=== PATIENT | female | born 1935 | race Caucasian/White ===

== ENCOUNTER 2017-01-20 14:32 | Emergency (ER) | payer OTHER ==
[~2017-01-20] VITALS: Ht 162.6 cm; Wt 49.9 kg
--- NOTE | 2017-01-20 15:27 | RADIOLOGY REPORT ---
EXAMINATION: XR TIBIA AND FIBULA, RIGHT CLINICAL INFORMATION: Right leg swelling COMPARISON: None TECHNIQUE: AP and lateral views of the right tibia and fibula were obtained. FINDINGS: The bones and joints are normal. There is soft tissue swelling involving the mid medial right calf. IMPRESSION: Normal right tibia and fibula. Soft tissue swelling.
--- NOTE | 2017-01-20 16:24 | ED UPPER/LOWER EXTREMITY COMPL ---
History of Present Illness General Chief Complaint: Lower Extremity Injury Stated Complaint: PT SOMETHING ON THERT ANKLE Source: patient, family Exam Limitations: no limitations Vital Signs & Intake/Output Vital Signs & Intake/Output Vital Signs Date Time Temp Pulse Resp B/P B/P Pulse O2 O2 Flow FiO2 Mean Ox Delivery Rate 01/20 1736 98.3 78 20 140/70 100 Room Air ED Intake and Output 01/21 0000 01/20 1200 Intake Total Output Total Balance Patient 110 lb Weight Allergies Coded Allergies: No Known Allergies (01/20/17) Reconcile Medications Alendronate Sodium 70 MG TABLET 1 TAB PO QMON OSTEOPOROSIS (Reported) in the morning, at least 30 minutes before the first food, beverage, or medication of the day Calcium Carbonate/Vitamin D3 (Calcium 500 + D Tablet) (Unknown Strength) TABLET (Unknown Dose) PO DAILY SUPPLEMENT (Reported) Cephalexin (Keflex) 500 MG CAPSULE 1 CAP PO TID INFECTION Ibuprofen 400 MG TABLET 1 TAB PO TID PRN PAIN Multivitamin (Multi-Day Vitamins) 1 EACH TABLET 1 TAB PO DAILY SUPPLEMENT ( Reported) [place]-3 Fatty Acids/Fish Oil (Fish Oil 1,200 MG Softgel) (Unknown Strength) CAPSULE (Unknown Dose) PO DAILY SUPPLEMENT (Reported) Triage Note: 81 YEAR OLD FEMALE STATES THAT SHE WAS REACHING FOR SOMETHING WHEN A MANTLE FELL DOWN ON HER R SANCHES AREA, PT NOTED WITH DEEP SKIN TEAR TO R SANCHES, AND SOME SWELLING, STATES THAT SHE IS PAIN FREE EXCEPT WHEN SHE WALKS Triage Nurses Notes Reviewed? yes Onset: Abrupt Duration: hour(s): (FEW) Timing: single episode today Severity: moderate Pain/Injury Location: Right: Leg. No Modifying Factors: none Associated Symptoms: BLEEDING, SKIN AVULSION HPI: This is an 81-year-old female who presents here with chief complaint of laceration to the right leg after the wood mantle fell on it. She states that she fell back and landed on her bottom. Did not hit her head or pass out. Tetanus is not up-to-date. Some active bleeding at home minimal at this time. Past History Travel History Traveled to [place] past 21 day No Medical History Any Pertinent Medical History? see below for history Neurological: NONE EENT: NONE Cardiovascular: NONE Respiratory: NONE Gastrointestinal: NONE Hepatic: NONE Renal: NONE Musculoskeletal: NONE Psychiatric: NONE Endocrine: NONE Blood Disorders: NONE Cancer(s): NONE DRESS DRAPER/Reproductive: NONE Tetanus Status: not up to date Surgical History Surgical History: non-contributory Psychosocial History What is your primary language Bulgarian Tobacco Use: Never used ETOH Use: denies use Illicit Drug Use: denies illicit drug use Family History Hx Contributory? No Review of Systems Review of Systems Constitutional: Denies: chills, fever. EENTM: Reports: no symptoms. Respiratory: Denies: cough, sputum production. Cardiovascular: Denies: chest pain, palpitations. Gastrointestinal/Abdominal: Denies: abdominal pain. Genitourinary: Reports: no symptoms. Musculoskeletal: Reports: see HPI (LEG PAIN). Skin: Reports: no symptoms. Neurological/Psychological: Reports: no symptoms. Hematologic/Endocrine: Reports: bruising, bleeding. Immunological: Denies: splenectomy. All Other Systems: Reviewed and Negative Physical Exam Physical Exam General Appearance: well developed/nourished, alert, awake, mild distress Head: atraumatic Eyes: Bilateral: PERRL, EOMI. Ears, Nose, Throat: normal pharynx, normal ENT inspection, hearing grossly normal Neck: normal inspection, supple Cardiovascular/Respiratory: regular rate/rhythm Peripheral Pulses: 2+ radial (R), 2+ radial (L), 2+ dorsalis pedis (R), 2+ dorsalis pedis (L) Gastrointestinal: SOFT NONTENDER Back: normal inspection Leg Left: normal range of motion, normal inspection Leg Right: SKIN ABRASION, SKIN AVULSION Hip Left: normal range of motion, normal inspection Hip Right: normal range of motion, normal inspection Knee Left: normal range of motion, normal inspection Knee Right: normal range of motion, normal inspection Foot Left: normal inspection, normal range of motion Foot Right: normal inspection, normal range of motion Neurologic/Tendon: normal sensation, normal motor functions, normal tendon functions Skin: intact, normal color, warm/dry Lymphatic: no anterior cervical morgan Diagram Legs Front/Back 1) SKIN ABRASION 2) 10 CM/10CM V SHAPED SKIN AVULSION Progress Differential Diagnosis: SKIN AVULSION, SKIN TEAR, FRACTURE, CONTUSION Plan of Care: Current Medications Sig/Nick Start time Last Medication Dose Stop Time Status Admin Lidocaine/Epinephrine 10 ML ONCE ONE 01/20 1645 AC 01/20 01/20 1646 1636 Tetanus/Diphtheria 0.5 ML ONCE ONE 01/20 1645 01/20 Toxoids Adsorbed 01/20 1646 1635 (Decavac) XRAY NEGATIVE FOR FRATURE. PATIENT WITH LARGE SKIN AVULSION THAT NEEDS REPAIR. Large flap laceration to the distal leg. Patient anesthetized and irrigated extensively by nurse. See laceration procedure below. (MIESHA MATTSON,MISSY) Diagnostic Imaging: Viewed by Me: Radiology Read. Discussed w/RAD: Radiology Read. Radiology Impression: PATIENT: WILFRED REDMAN PRESENT AGE: 81 PATIENT ACCOUNT NO: [id number] : 35 LOCATION: [facility] ORDERING PHYSICIAN: NORA SAGE DO SERVICE DATE: 01/20/17 EXAM TYPE: RAD - [id number], RIGHT EXAMINATION: XR TIBIA AND FIBULA, RIGHT CLINICAL INFORMATION: Right leg swelling COMPARISON: None TECHNIQUE: AP and lateral views of the right tibia and fibula were obtained. FINDINGS: The bones and joints are normal. There is soft tissue swelling involving the mid medial right calf. IMPRESSION: Normal right tibia and fibula. Soft tissue swelling. DICTATED BY: SUKHJINDER PIMENTEL MD DATE/TIME DICTATED:01/20/171521 SLAB INSTALLER: REBEKAH DATE/TIME TRANSCRIBED:01/20/171521 CONFIDENTIAL, DO NOT COPY WITHOUT APPROPRIATE AUTHORIZATION. <Electronically signed in Other Vendor System> SIGNED BY: SUKHJINDER PIMENTEL MD 01/20/171526 Departure Departure Time of Disposition: 1747 Disposition: HOME OR SELF CARE Condition: Stable Clinical Impression Primary Impression: Skin avulsion Secondary Impressions: Skin tear Referrals: GEORGE RENTERIA MD (PCP/Family) Additional Instructions: RETURN IN 2 DAYS FOR WOUND RECHECK FOLLOW UP WITH THE WOUND CARE CLINIC ([phone]) TAKE KEFLEX DIRECTED AND TYLENOL NEEDED FOR PAIN Departure Forms: Customer Survey General Discharge Information Prescriptions: Current Visit Scripts Cephalexin (Keflex) 1 CAP PO TID #30 CAP Ibuprofen 1 TAB PO TID PRN PAIN #20 TAB Procedures Laceration/Wound Repair Laceration/Wound Repair: Wound Location: RIGHT LEG Wound's Depth, Shape: into muscle Wound Length (cm): 20 Wound Explored: clean, no foreign body removed, irrigated extensively Irrigated w/ Saline (ccs): 100 Betadine Prep? Yes Anesthesia: lidocaine w/ epi Volume Anesthetic (ccs): 5 Suture Size/Type: 6:0 Number of Sutures: 16 Progress: patient tolerated procedure well
[2017-01-20] MEDS ORDERED: MULTI-DAY VITA1 EACH PO (16:49)
[2017-01-20] MEDS ORDERED: FISH OIL 1,2001 EAC4 PO (16:49)
[2017-01-20] MEDS ORDERED: ALENDRONATE SOD70 M2 PO (16:49)
[2017-01-20] MEDS ORDERED: CALCIUM 500 +1 EAC5 PO (16:50)
[2017-01-20] MEDS ORDERED: IBUPROFEN400 M1 PO (17:25)
[2017-01-20] MEDS ORDERED: KEFLEX500 M1 PO (17:25)
[2017-01-20 17:36] VITALS: BP 140/70
== END 2017-01-20 17:49 ==
LOC: ERH 14:32
DX: S81.811A Laceration without foreign body, right lower leg, initial encounter (principal); W20.8XXA Other cause of strike by thrown, projected or falling object, initial encounter; Y93.9 Activity, unspecified; Y92.9 Unspecified place or not applicable
CPT/HCPCS: 73590-RT; 90471; 90714